=== PATIENT | male | born 1985 | race American Indian/Alaskan Native ===

== ENCOUNTER 2017-02-12 04:19 | Emergency (ER) | payer OTHER ==
[2017-02-12 04:58] VITALS: BP 177/133
[2017-02-12] MEDS ORDERED: PERCOCET 5/325 PO ONE (09:02)
--- NOTE | 2017-02-12 09:06 | Emergency Department Report ---
ED Lower Extremity HPI - General Chief Complaint: Extremity Injury, Lower Stated Complaint: FALL/LT LEG INJURY Time Seen by Provider: 02/12/17 09:01 Source: patient Mode of arrival: Ambulatory Limitations: No Limitations - History of Present Illness Initial Comments: 31-year-old -[place] male comes in for complaint of left side pain. Patient reports that he fail and when he got up he heard something pop on the back of his thigh. Patient state that thigh is swollen and become hot. He rates his pain a 9 out of 10 and he reports describing sharp achy. He did take some aspirin last night which did not help. She reports no past medical history currently takes no medication and is allergic to penicillin. MD Complaint: thigh injury - Related Data Previous Rx's Medication Instructions Recorded Last Taken Type Ibuprofen [Motrin 800 MG tab] 800 mg PO Q8HR PRN #30 tablet 02/12/17 Unknown Rx Allergies Allergy/AdvReac Type Severity Reaction Status Date / Time Penicillins Allergy Hives Verified 02/12/17 04:48 ED Review of Systems ROS: Stated complaint: FALL/LT LEG INJURY Other details as noted in HPI Comment: All other systems reviewed and negative Musculoskeletal: as per HPI, other (left thigh pain and swelling) ED Past Medical Hx - Past Medical History Previous Medical History?: No - Surgical History Past Surgical History?: No - Social History Smoking Status: Current Every Day Smoker Substance Use Type: Alcohol - Medications Home Medications: Home Medications Medication Instructions Recorded Confirmed Last Taken Type Ibuprofen [Motrin 800 MG tab] 800 mg PO Q8HR PRN #30 tablet 02/12/17 Unknown Rx ED Physical Exam - General Limitations: No Limitations - Head Head exam: Present: atraumatic, normocephalic - Eye Eye exam: Present: normal appearance - Expanded Lower Extremity Exam Right Upper Leg exam: Present: tenderness. Absent: full ROM, laceration, ecchymosis, deformity ED Course Vital Signs 02/12/17 02/12/17 04:49 09:11 Temperature 98.6 F Pulse Rate 99 H Respiratory 20 16 Rate Blood Pressure 177/133 O2 Sat by Pulse 99 Oximetry ED Lower Extremity MDM - Radiology Data Radiology results: report reviewed X-ray shows normal left femur. Critical care attestation.: If time is entered above; I have spent that time in minutes in the direct care of this critically ill patient, excluding procedure time. ED Disposition Clinical Impression: Muscle strain of right thigh Qualifiers: Encounter type: initial encounter Qualified Code(s): S76.911A - Strain of unspecified muscles, fascia and tendons at thigh level, right thigh, initial encounter Disposition: DISCHARGED TO HOME OR SELFCARE Is pt being admited?: No Does the pt Need Aspirin: No Condition: Stable Additional Instructions: Please take pain medication as prescribed. He need to follow up in orthopedic specialists if pain persist or gets worse. I recommend for you to do the exercises and he will get in a discharge summary. Prescriptions: Ibuprofen [Motrin 800 MG tab] 800 mg PO Q8HR PRN #30 tablet PRN Reason: Pain Referrals: PRIMARY CARE, [Primary Care Provider] - 3-5 Days MARY HERNANDEZ MD [Staff Physician] - 3-5 Days Forms: Work/School Release Form(ED)
--- NOTE | 2017-02-12 09:28 | XRay Report ---
LEFT FEMUR: History: Left leg pain after fall. AP and lateral views of the femur demonstrate normal mineralization and contours for this patient's age. No destructive changes are noted and the adjacent soft tissues are normal. IMPRESSION: Normal left femur.
== END 2017-02-12 09:56 | disposition home or self-care (01) ==
LOC: ED 04:19
DX: S76.911A Strain of unspecified muscles, fascia and tendons at thigh level, right thigh, initial encounter (principal); F17.200 Nicotine dependence, unspecified, uncomplicated; Z88.0 Allergy status to penicillin; X58.XXXA Exposure to other specified factors, initial encounter; Y93.9 Activity, unspecified; Y92.89 Other specified places as the place of occurrence of the external cause; Y99.9 Unspecified external cause status
CPT/HCPCS: 99283